=== PATIENT | male | born 1960 | race Caucasian/White ===

== ENCOUNTER 2017-05-09 12:22 | Day surgery (SDC) | payer BC ==
[~2017-05-09] VITALS: Ht 170.2 cm; Wt 72.6 kg
[~2017-05-09 12:22] MED LIST: ?ANTIBIOTIC PO; AMOXICILLIN500 MG PO; ASPIRIN ADULT L81 M2 PO; AUGMENTIN875TAB PO; BENZONATATE200 MG PO; CLINDAMYCIN300 M1 PO; FLONASE NASAL50 MCG; GLIPIZIDE5 MG PO; LISINOPRIL2.5 MG PO; LOVASTATIN10 M1 PO; MEDDOSEPAK PO; METFORMIN1000 MG PO; METFORMIN500 MG OR; NAPROSYN500 MG PO; NEXIUM40 M1 PO; PRILOSEC40 MG PO; PROBIOTIC DAILY1 CAP PO; ULTRAM50 M1 PO; VENTOLIN HF1 IN; ZESTRIL/PRINIV2.5 MG PO; [UNRECOGNIZED DRUG - REMARK]
[2017-05-09] MEDS ORDERED: FLUCONAZOLE200 MG PO (14:48)
[2017-05-09 17:13] VITALS: BP 124/78
== END 2017-05-09 17:30 | disposition home or self-care (01) | DRG 392 ==
LOC: ENDO 12:22
PROVIDERS: ATTEND Internal Medicine Gastroenterology
PROC: 0DB58ZX Excision of Esophagus, Via Natural or Artificial Opening Endoscopic, Diagnostic (ICD-10-PCS; principal; 2017-05-09)
PROC: 0DJD8ZZ Inspection of Lower Intestinal Tract, Via Natural or Artificial Opening Endoscopic (ICD-10-PCS; 2017-05-09)
DX: R19.5 Other fecal abnormalities (principal); E11.8 Type 2 diabetes mellitus with unspecified complications; K56.609 Unspecified intestinal obstruction, unspecified as to partial versus complete obstruction; K57.32 Diverticulitis of large intestine without perforation or abscess without bleeding; K44.9 Diaphragmatic hernia without obstruction or gangrene; R10.32 Left lower quadrant pain; E78.00 Pure hypercholesterolemia, unspecified; K22.70 Barrett's esophagus without dysplasia; K21.0 Gastro-esophageal reflux disease with esophagitis; K29.70 Gastritis, unspecified, without bleeding; K29.80 Duodenitis without bleeding; K64.4 Residual hemorrhoidal skin tags; K64.8 Other hemorrhoids; K57.30 Diverticulosis of large intestine without perforation or abscess without bleeding

== ENCOUNTER 2019-01-02 12:46 | Inpatient (IN) | payer BC ==
[~2019-01-02] VITALS: Ht 170.2 cm; Wt 69.0 kg
[~2019-01-02 12:46] MED LIST changes: +FLUCONAZOLE200 MG PO
[2019-01-02 13:22] LABS: HEMATOCRIT 44.7 % (39.0-50.0); HEMOGLOBIN 15.7 g/dl (14.0-18.0); IMMATURE GRANULOCYTES 0.2 % (0.0-5.0); MEAN CELL VOLUME 79.1 fL CALC (80.0-100.0); MEAN CORPUSCULAR HGB 27.8 pG CALC (26.0-32.0); MEAN CORPUSCULAR HGB CONC 35.1 g/L CALC (32.0-36.0); NEUT# 6.69 thou/uL (1.82-7.42); RED BLOOD COUNT 5.65 mill/uL (4.70-6.10); RED CELL DISTRI WIDTH 13.4 % (11.5-15.5)
[2019-01-02 13:50] LABS: ALBUMIN 5.6 g/dL (3.2-5.0); ALKALINE PHOSPHATASE 86 u/l (38-126); BILIRUBIN, TOTAL 0.9 mg/dL (0.0-1.4); BUN 22 mg/dL (9-20); BUN/CREATININE RATIO 25 (12-20 (CALC)); CHLORIDE 99 mmol/l (95-108); CREATININE 0.9 mg/dL (0.7-1.3); GFR > 60 ML/MIN (>=60 (CALC)); GFR FOR AFR.AMER. > 60 ML/MIN (>=60 (CALC)); LIPASE 96 u/l (23-300); POTASSIUM 4.7 mmol/l (3.5-5.1); SGOT/AST 18 u/l (17-59); SODIUM 139 mmol/l (137-146); TOTAL PROTEIN 8.7 g/dL (6.3-8.2)
[2019-01-02 14:06] LABS: ANION GAP 26 (6-22 (CALC)); CARBON DIOXIDE 19 mmol/l (22-30)
[2019-01-02 17:20] VITALS: BP 140/84
[2019-01-02 21:25] VITALS: BP 161/92
[2019-01-02 21:53] LABS: URINE BILIRUBIN - DIPSTICK NEGATIVE (NEGATIVE); URINE BLOOD DIPSTICK NEGATIVE (NEGATIVE); URINE COLOR YELLOW; URINE GLUCOSE - DIPSTICK >=1000 mg/dL (NEGATIVE); URINE KETONE TRACE mg/dL (NEGATIVE); URINE LEUK ESTERASE NEGATIVE (NEGATIVE); URINE NITRITE - DIPSTICK NEGATIVE (Negative); URINE PROTEIN - DIPSTICK TRACE mg/dL (NEG-TRACE); URINE UROBILINOGEN - DIPSTICK 0.2 E.U./dL (0.2)
[2019-01-03] VITALS: BP 109/79
[2019-01-03 04:00] VITALS: BP 103/70
[2019-01-03 07:00] VITALS: BP 110/77
[2019-01-03 09:51] LABS: HEMATOCRIT 38.9 % (39.0-50.0); IMMATURE GRANULOCYTES 0.1 % (0.0-5.0); MEAN CELL VOLUME 81.4 fL CALC (80.0-100.0); MEAN CORPUSCULAR HGB 28.2 pG CALC (26.0-32.0); MEAN CORPUSCULAR HGB CONC 34.7 g/L CALC (32.0-36.0); NEUT# 4.58 thou/uL (1.82-7.42); RED BLOOD COUNT 4.78 mill/uL (4.70-6.10); RED CELL DISTRI WIDTH 13.8 % (11.5-15.5)
[2019-01-03 09:52] LABS: HEMOGLOBIN 13.5 g/dl (14.0-18.0)
[2019-01-03 10:46] LABS: ANION GAP 15 (6-22 (CALC)); BUN 21 mg/dL (9-20); BUN/CREATININE RATIO 30 (12-20 (CALC)); CHLORIDE 106 mmol/l (95-108); CREATININE 0.7 mg/dL (0.7-1.3); GFR > 60 ML/MIN (>=60 (CALC)); GFR FOR AFR.AMER. > 60 ML/MIN (>=60 (CALC)); POTASSIUM 4.5 mmol/l (3.5-5.1); SODIUM 140 mmol/l (137-146)
[2019-01-03 10:47] LABS: CARBON DIOXIDE 24 mmol/l (22-30)
[2019-01-03 16:19] VITALS: BP 140/81
[2019-01-03 19:29] VITALS: BP 157/72
[2019-01-03 20:00] VITALS: BP 132/81
[2019-01-04] VITALS: BP 114/60
[2019-01-04 03:40] VITALS: BP 102/62
[2019-01-04 05:15] LABS: HEMATOCRIT 34.4 % (39.0-50.0); HEMOGLOBIN 11.7 g/dl (14.0-18.0); IMMATURE GRANULOCYTES 0.2 % (0.0-5.0); MEAN CELL VOLUME 81.9 fL CALC (80.0-100.0); MEAN CORPUSCULAR HGB 27.9 pG CALC (26.0-32.0); NEUT# 2.54 thou/uL (1.82-7.42); RED BLOOD COUNT 4.2 mill/uL (4.70-6.10); RED CELL DISTRI WIDTH 13.3 % (11.5-15.5)
[2019-01-04 05:34] LABS: ANION GAP 13 (6-22 (CALC)); BUN 19 mg/dL (9-20); BUN/CREATININE RATIO 27 (12-20 (CALC)); CARBON DIOXIDE 23 mmol/l (22-30); CHLORIDE 106 mmol/l (95-108); CREATININE 0.7 mg/dL (0.7-1.3); GFR > 60 ML/MIN (>=60 (CALC)); GFR FOR AFR.AMER. > 60 ML/MIN (>=60 (CALC)); POTASSIUM 4.3 mmol/l (3.5-5.1); SODIUM 139 mmol/l (137-146)
[2019-01-04 12:00] VITALS: BP 160/92
== END 2019-01-04 14:35 | disposition home or self-care (01) | DRG 390 ==
LOC: ED 12:46 → ED-I 16:24 → ED 16:32 → ICU 16:33
PROVIDERS: Family Medicine; ADMIT Internal Medicine; ATTEND Internal Medicine
DX: K56.600 Partial intestinal obstruction, unspecified as to cause (principal); I10 Essential (primary) hypertension; E11.9 Type 2 diabetes mellitus without complications; E78.5 Hyperlipidemia, unspecified; Z91.19 Patient's noncompliance with other medical treatment and regimen; Z79.84 Long term (current) use of oral hypoglycemic drugs

== ENCOUNTER 2020-03-31 10:49 | Day surgery (SDC) | payer BC ==
[~2020-03-31] VITALS: Ht 170.2 cm; Wt 67.6 kg
[~2020-03-31 10:49] MED LIST changes: +CIPROFLOXACN500 MG PO; -LISINOPRIL2.5 MG PO; +LISINOPRIL5 MG PO; +METFORMIN500 M2 PO; +NAPROSYN250 MG PO; +PERCOCET 5/325M1 TAB PO; +TAMSULOSIN0.4 MG PO
[2020-03-31 14:23] VITALS: BP 115/70
== END 2020-03-31 15:05 | disposition home or self-care (01) | DRG 988 ==
LOC: ORM 10:49
PROVIDERS: ATTEND Urology
PROC: 0T778DZ Dilation of Left Ureter with Intraluminal Device, Via Natural or Artificial Opening Endoscopic (ICD-10-PCS; principal; 2020-03-31)
PROC: BT1FZZZ Fluoroscopy of Left Kidney, Ureter and Bladder (ICD-10-PCS; 2020-03-31)
DX: N40.1 Benign prostatic hyperplasia with lower urinary tract symptoms (principal); N13.8 Other obstructive and reflux uropathy; N20.1 Calculus of ureter; E11.9 Type 2 diabetes mellitus without complications; I10 Essential (primary) hypertension; N52.9 Male erectile dysfunction, unspecified; Z79.84 Long term (current) use of oral hypoglycemic drugs; Z11.59 Encounter for screening for other viral diseases
CPT/HCPCS: C1769; J0131

== ENCOUNTER 2023-02-10 15:32 | Emergency (ER) | payer BC ==
[~2023-02-10] VITALS: Ht 170.2 cm; Wt 73.9 kg
[2023-02-10 15:42] VITALS: BP 126/77
[2023-02-10 15:46] VITALS: BP 120/84
[2023-02-10 16:00] VITALS: BP 127/77
[2023-02-10 16:31] VITALS: BP 127/77
== END 2023-02-10 16:34 | disposition home or self-care (01) | DRG 951 ==
LOC: ED 15:32 → LWOBS 16:06
DX: Z53.21 Procedure and treatment not carried out due to patient leaving prior to being seen by health care provider (principal)